=== PATIENT | female | born 1980 ===

== ENCOUNTER → 2025-04-07 | Day surgery (SDC) | payer OTHER ==
[2025-03-28 11:27] LABS: BASO % 0.8 % (0.1-1.2); EOS # 0.18 (0.04-0.54); EOS % 3.7 % (0.7-7.0); HEMATOCRIT 28.1 % (34.1-44.9); LYMPH # 1.23 (1.18-3.74); LYMPH % 25.4 % (19.3-53.1); MEAN CORPUSCULAR HEMOGLOBIN 17.9 pg (25.6-32.2); MONO # 0.38 (0.24-0.82); MONO % 7.8 % (4.7-12.5); NEUT % 61.9 % (34.0-71.1); PLATELET COUNT 336 K/uL (163-369); RED BLOOD COUNT 4.53 M/uL (3.93-5.22); RED CELL DISTRIBUTION WIDTH 20.3 % (11.6-14.4)
[2025-03-28 11:33] LABS: PH,URINE 6.5 (5.0-8.0); URINE APPEARANCE Clear; URINE BILIRRUBIN Negative (NEGATIVE); URINE BLOOD Negative; URINE COLOR Yellow; URINE GLUCOSE Negative (NEGATIVE); URINE KETONE Negative (NEGATIVE); URINE LEUKOCYTE Negative; URINE NITRATE Negative; URINE PROTEIN Negative (NEGATIVE); URINE UROBILINOGEN 0.2 E.U./dl
[2025-03-28 11:33] LABS: HEMOGLOBIN 8.1 g/dL (11.2-15.7)
[2025-03-28 11:38] VITALS: BP 119/78
[2025-03-28 11:38] LABS: URINE BACTERIA 877.5 uL (0.0-1933); URINE EPITHELIAL CELLS 32.8 uL (0.0-38.8); URINE WBC 8.2 uL (0.0-23.2)
[2025-03-28 11:40] LABS: URINE RBC 1.6 uL (0.0-20.8)
[2025-03-28 11:50] LABS: PARTIAL THROMBOPLASTIN TIME 22.3 SECONDS (22.0-34.0); PROTHROMBIN TIME 10.9 SECONDS (9.0-11.5)
[2025-03-28 12:45] LABS: ALBUMIN 3.9 gm/dL (3.4-5.0); BILIRUBIN TOTAL 0.27 mg/dL (0.3-1.2); CALCIUM 8.5 mg/dL (8.5-10.1); CREATININE SERUM 0.66 mg/dL (0.55-1.02); GFR 97.74; GLOBULINA 3.7 G/DL (2.4-3.5); POTASSIUM 4.67 mEq/L (3.5-5.1); TOTAL PROTEIN 7.6 gm/dL (6.4-8.2)
[~2025-04-07] VITALS: Ht 165.1 cm; Wt 71.2 kg
[~2025-04-07] MED LIST: ONDANSETRON HCL 2 MG/ML VIAL IV ONE; POVIDONE-IODINE 118 ML BOTT TOP ONE
[2025-04-07 09:03] LABS: RH POSITIVE
== END | disposition home or self-care (01) ==
LOC: ADM 03-28 09:30 → CIR.AMB 07:08
PROVIDERS: ATTEND Obstetrics & Gynecology
DX: N93.8 Other specified abnormal uterine and vaginal bleeding (principal); N84.0 Polyp of corpus uteri